=== PATIENT | male | born 1950 | race Caucasian/White ===

== ENCOUNTER → 2018-05-15 | Outpatient (CLI) | payer MEDICARE ==
[~2018-05-15] MED LIST: REGADENOSON 0.4 MG/5 ML SYRINGE ONE
== END ==
LOC: CFH 06:43
PROVIDERS: ATTEND Internal Medicine Cardiovascular Disease
DX: I25.2 Old myocardial infarction (principal); I08.3 Combined rheumatic disorders of mitral, aortic and tricuspid valves; I10 Essential (primary) hypertension; Z72.0 Tobacco use
CPT/HCPCS: 78452; 93017; 93306; A9502; J2785

== ENCOUNTER 2018-11-02 09:45 | Observation (INO) | payer MEDICARE ==
[~2018-11-02] VITALS: Ht 191.8 cm; Wt 105.0 kg
[2018-11-02] MEDS ORDERED: METO25TA91 PO (10:12)
[2018-11-02] MEDS ORDERED: IRBE300T16 PO (10:12)
[2018-11-02 10:51] VITALS: BP 163/99
[2018-11-02] MEDS ORDERED: NITROGLYCERIN 5 MG/ML, 10ML ONE (12:30)
[2018-11-02] MEDS ORDERED: MIDAZOLAM 1 MG/ML, 5ML ONE (12:30)
[2018-11-02] MEDS ORDERED: HEPARIN 1,000 UNITS/ML, 10ML ONE (12:30)
[2018-11-02] MEDS ORDERED: VERAPAMIL 2.5 MG/ML, 2ML ONE (12:30)
[2018-11-02] MEDS ORDERED: FENTANYL PF 100 MCG/2ML ONE (12:30)
[2018-11-02] MEDS ORDERED: LIDOCAINE 2%, 20ML ONE (12:31)
[2018-11-02] MEDS ORDERED: TICAGRELOR 90 MG TABLET ONE (13:00)
[2018-11-02] MEDS ORDERED: BIVALIRUDIN 250 MG ONE (13:00)
[2018-11-02] MEDS ORDERED: SODIUM CHLORIDE 0.9% 1,000 ML IV SCH (13:43)
[2018-11-02] MEDS ORDERED: CLOPIDOGREL 75 MG TABLET ONE (14:09)
[2018-11-02] MEDS ORDERED: CLOP75TA PO (15:21)
[2018-11-02] MEDS ORDERED: ATOR40TA78 PO (15:22)
[2018-11-02 17:06] LABS: ANION GAP 4 mmol/L (5-15); CALCIUM 8.2 mg/dL (8.5-10.1); CHLORIDE 107 mmol/L (98-107); CREATININE 1.02 mg/dL (0.7-1.3)
[2018-11-02] MEDS ORDERED: ATORVASTATIN 40 MG TABLET PO SCH (21:00)
[2018-11-03] MEDS ORDERED: IRBESARTAN 300 MG TABLET PO SCH (09:00)
[2018-11-03] MEDS ORDERED: CLOPIDOGREL 75 MG TABLET PO SCH (09:00)
[2018-11-03] MEDS ORDERED: ASPIRIN 81 MG TABLET EC PO SCH (09:00)
[2018-11-03] MEDS ORDERED: METOPROLOL SUCCINATE 25 MG TAB.ER.24H PO SCH (09:00)
== END 2018-11-02 19:00 | disposition home or self-care (01) ==
LOC: CACL 09:45 → ORIP 13:43 → 5SO 15:54
PROVIDERS: ADMIT Internal Medicine Cardiovascular Disease; ATTEND Internal Medicine Cardiovascular Disease
DX: I25.10 Atherosclerotic heart disease of native coronary artery without angina pectoris (principal); I10 Essential (primary) hypertension; I25.2 Old myocardial infarction
CPT/HCPCS: 36415; 80048; 93458; 99156; 99157; C1725; C1769; C1874; C1887; C1894; C9600; G0378; J0583; J1644; J2250; J3010; J3490; Q9967

== ENCOUNTER 2019-05-24 09:46 | Observation (INO) | payer MEDICARE ==
[~2019-05-24] VITALS: Ht 190.5 cm; Wt 104.8 kg
[~2019-05-24 09:46] MED LIST changes: +ATOR40TA78 PO; +CLOP75TA PO; +IRBE300T16 PO; +METO25TA91 PO; -REGADENOSON 0.4 MG/5 ML SYRINGE ONE
[2019-05-24 10:14] VITALS: BP 127/91
[2019-05-24] MEDS ORDERED: NITR0.4T41 SL (10:23)
[2019-05-24 10:31] LABS: BASOPHILS # (AUTO) 0.03 x10^3/uL (0-0.1); BASOPHILS % (AUTO) 0 % (0-1); EOSINOPHILS # (AUTO) 0.09 x10^3/uL (0-0.4); EOSINOPHILS % (AUTO) 1 % (1-7); LYMPHOCYTES # (AUTO) 1.92 x10^3/uL (1-3.4); LYMPHOCYTES % (AUTO) 23 % (22-44); MD NO; MEAN CORPUSCULAR HEMOGLOBIN 32.5 pg (27.5-34.5); MEAN CORPUSCULAR HGB CONC 33.9 g/dL (33.2-36.2); MEAN PLATELET VOLUME 7.5 fL (7.4-10.4); MONOCYTES # (AUTO) 0.59 x10^3/uL (0.2-0.8); MONOCYTES % (AUTO) 7 % (2-9); NEUTROPHILS # (AUTO) 5.89 x10^3/uL (1.8-6.8); NEUTROPHILS % (AUTO) 69 % (42-75); PLATELET COUNT 224 x10^3/uL (130-400); RED BLOOD COUNT 5.01 x10^6/uL (4.38-5.82); RED CELL DISTRIBUTION WIDTH 13.1 % (9.4-14.8)
[2019-05-24] MEDS ORDERED: FENTANYL PF 100 MCG/2ML ONE (11:32)
[2019-05-24] MEDS ORDERED: MIDAZOLAM 1 MG/ML, 5ML ONE (11:32)
[2019-05-24] MEDS ORDERED: BIVALIRUDIN 250 MG ONE (11:33)
[2019-05-24] MEDS ORDERED: VERAPAMIL 2.5 MG/ML, 2ML ONE (11:33)
[2019-05-24] MEDS ORDERED: TICAGRELOR 90 MG TABLET ONE (11:33)
[2019-05-24] MEDS ORDERED: LIDOCAINE 2%, 20ML ONE (11:33)
[2019-05-24] MEDS ORDERED: HEPARIN 1,000 UNITS/ML, 10ML ONE (11:33)
[2019-05-24] MEDS ORDERED: CLOPIDOGREL 75 MG TABLET ONE (12:43)
[2019-05-24] MEDS ORDERED: BISACODYL 5 MG EC TABLET PO PRN (13:00)
[2019-05-24] MEDS ORDERED: NITROGLYCERIN SINGLE TAB 0.4 MG SL PRN (13:00)
[2019-05-24] MEDS ORDERED: ACETAMINOPHEN 325 MG TABLET PO PRN (13:00)
[2019-05-24] MEDS ORDERED: ZOLPIDEM 5MG TABLET PO PRN (13:00)
[2019-05-24] MEDS ORDERED: SODIUM CHLORIDE 0.9% 1,000 ML IV SCH (13:15)
[2019-05-24 13:23] VITALS: BP 163/94
[2019-05-24 13:45] VITALS: BP 132/89
[2019-05-24 19:19] VITALS: BP 121/82
[2019-05-24] MEDS ORDERED: ATORVASTATIN 40 MG TABLET PO SCH (21:00)
[2019-05-25 00:23] VITALS: BP 147/87
[2019-05-25 04:30] LABS: ANION GAP 4 mmol/L (5-15); CALCIUM 8.6 mg/dL (8.5-10.1); CHLORIDE 106 mmol/L (98-107); CREATININE 1.04 mg/dL (0.7-1.3)
[2019-05-25 07:51] VITALS: BP 133/78
[2019-05-25] MEDS ORDERED: ACET325T26 PO (08:07)
[2019-05-25] MEDS ORDERED: ASPI81TA45 PO (08:07)
[2019-05-25] MEDS ORDERED: CLOPIDOGREL 75 MG TABLET PO SCH ×2 (09:00)
[2019-05-25] MEDS ORDERED: METOPROLOL SUCCINATE 25 MG TAB.ER.24H PO SCH (09:00)
[2019-05-25] MEDS ORDERED: ASPIRIN 81 MG TABLET EC PO SCH (09:00)
[2019-05-25] MEDS ORDERED: IRBESARTAN 300 MG TABLET PO SCH (09:00)
== END 2019-05-25 10:38 | disposition home or self-care (01) ==
LOC: CACL 09:46 → 5SO 12:57 → DCLOUNGE 05-25 10:31
PROVIDERS: ADMIT Internal Medicine Cardiovascular Disease; ATTEND Internal Medicine Cardiovascular Disease
DX: I25.110 Atherosclerotic heart disease of native coronary artery with unstable angina pectoris (principal); I10 Essential (primary) hypertension; R01.1 Cardiac murmur, unspecified; Z79.899 Other long term (current) drug therapy; Z95.5 Presence of coronary angioplasty implant and graft
CPT/HCPCS: 36415; 80048; 85025; 93005; 93458; 99156; 99157; C1725; C1760; C1769; C1874; C1887; C1894; C9600; G0378; J0583; J2250; J3010; J3490; Q9967; J1644

== ENCOUNTER → 2021-04-16 | Outpatient (CLI) | payer MEDICARE ==
[~2021-04-16] MED LIST changes: +ACET325T26 PO; +ASPI81TA45 PO; -IRBE300T16 PO; +IRBE300T8 PO; +NITR0.4T41 SL
== END | disposition home or self-care (01) ==
LOC: CVU 06:56
PROVIDERS: ATTEND Internal Medicine Cardiovascular Disease
DX: I08.3 Combined rheumatic disorders of mitral, aortic and tricuspid valves (principal); I10 Essential (primary) hypertension; I25.10 Atherosclerotic heart disease of native coronary artery without angina pectoris; E78.5 Hyperlipidemia, unspecified
CPT/HCPCS: 93306